=== PATIENT | male | born 1960 | race Caucasian/White ===

== ENCOUNTER 2018-07-16 13:55 | Emergency (ER) | payer MEDICARE, MEDICAID ==
[~2018-07-16] VITALS: Ht 172.7 cm; Wt 77.3 kg
[~2018-07-16 13:55] MED LIST: BUPR-93 PO; MULT-1239 PO; PHEN100C23 PO
[2018-07-16 14:07] VITALS: BP 132/78
== END 2018-07-16 16:34 | disposition left against medical advice (07) ==
LOC: EMS 13:56
DX: L89.159 Pressure ulcer of sacral region, unspecified stage (principal); L08.89 Other specified local infections of the skin and subcutaneous tissue; L97.421 Non-pressure chronic ulcer of left heel and midfoot limited to breakdown of skin; F17.210 Nicotine dependence, cigarettes, uncomplicated; G40.909 Epilepsy, unspecified, not intractable, without status epilepticus; Z59.0 Homelessness; Z79.899 Other long term (current) drug therapy

== ENCOUNTER 2018-08-17 13:22 | Emergency (ER) | payer MEDICARE, MEDICAID ==
[~2018-08-17] VITALS: Ht 170.2 cm; Wt 77.3 kg
[2018-08-17] MEDS ORDERED: DOXY100C PO (14:55)
[2018-08-17 15:15] LABS: BASOPHILS % (AUTO) 0.7 % (0.0-2.0); EOSINOPHILS % (AUTO) 4.6 % (1.0-6.0); HEMATOCRIT 42.6 % (41-53); HEMOGLOBIN 14.6 g/dL (13.5-17.5); LYMPHOCYTES # (AUTO) 2.7 K/uL (1.0-4.8); LYMPHOCYTES % (AUTO) 42.8 % (22.0-44.0); MEAN CORPUSCULAR HEMOGLOBIN 29.7 pg (26.0-34.0); MEAN CORPUSCULAR HGB CONC 34.3 G/dL (31.0-37.0); MEAN CORPUSCULAR VOLUME 86 fL (80-100); MONOCYTES # (AUTO) 0.6 K/uL (0.1-1.0); MONOCYTES % (AUTO) 9.5 % (2.0-9.0); NEUTROPHILS # (AUTO) 2.7 K/uL (1.8-7.7); NEUTROPHILS % (AUTO) 42.4 % (40.0-70.0); PLATELET COUNT (AUTO) 338 K/uL (150-450); RED BLOOD CELL COUNT(AUTO) 4.93 MIL/uL (4.50-5.90); RED CELL DISTRIBUTION WIDTH 14.1 % (11.5-14.5)
[2018-08-17 15:30] LABS: ANION GAP 12 mmol/L (8-16); CALCIUM, TOTAL 9.3 mg/dL (8.8-10.5); CARBON DIOXIDE 24 mmol/L (22-29); CHLORIDE 107 mmol/L (98-107); CREATININE 0.94 mg/dL (0.60-1.30); GLOMERULAR FILTR. RATE CALC > 60 mL/min (>60); GLUCOSE,RANDOM 118 mg/dL (70-110); POTASSIUM 3.9 mmol/L (3.5-5.1); SODIUM SERUM 143 mmol/L (136-145); UREA NITROGEN, BLOOD 16 mg/dL (7-18)
[2018-08-17 15:38] LABS: ALANINE AMINOTRANSFERASE 20 U/L (12-78); ALBUMIN 3.6 g/dL (3.4-5.0); ALKALINE PHOSPHATASE 116 U/L (46-116); ASPARTATE AMINOTRANSFERASE 17 U/L (15-37); BILIRUBIN,TOTAL 0.2 mg/dL (0.1-1.0); TOTAL PROTEIN, SERUM 8.1 g/dL (6.4-8.2)
[2018-08-17 17:22] LABS: AMPHET/METH SCREEN,URINE POSITIVE (NEGATIVE); BARBITURATE SCREEN, URINE NEGATIVE (NEGATIVE); BENZODIAZEPINES SCREEN,URINE NEGATIVE (NEGATIVE); CANNABINOID SCREEN,URINE NEGATIVE (NEGATIVE); COCAINE SCREEN,URINE NEGATIVE (NEGATIVE); METHADONE SCREEN, URINE NEGATIVE (NEGATIVE); OPIATE SCREEN,URINE NEGATIVE (NEGATIVE); PHENCYCLIDINE SCREEN,URINE NEGATIVE (NEGATIVE)
[2018-08-18 00:24] VITALS: BP 118/55
== END 2018-08-18 01:43 | disposition short-term general hospital (02) ==
LOC: EMS 13:22
DX: S81.801A Unspecified open wound, right lower leg, initial encounter (principal); S81.802A Unspecified open wound, left lower leg, initial encounter; F33.9 Major depressive disorder, recurrent, unspecified; F15.10 Other stimulant abuse, uncomplicated; L98.499 Non-pressure chronic ulcer of skin of other sites with unspecified severity; F17.210 Nicotine dependence, cigarettes, uncomplicated; X58.XXXA Exposure to other specified factors, initial encounter; Y93.89 Activity, other specified; Y92.89 Other specified places as the place of occurrence of the external cause; Y99.8 Other external cause status
CPT/HCPCS: 36415; 80053; 80307; 85025; 99285; 99406; G0480

== ENCOUNTER 2018-08-23 15:37 | Emergency (ER) | payer MEDICARE, MEDICAID ==
[~2018-08-23] VITALS: Ht 172.7 cm; Wt 63.6 kg
[~2018-08-23 15:37] MED LIST changes: -BUPR-93 PO; +DOXY100C PO
[2018-08-23] MEDS ORDERED: ACETAMINOPHEN 500 MG TABLET PO ONE (16:15)
[2018-08-23 17:35] VITALS: BP 121/82
== END 2018-08-23 18:15 | disposition home or self-care (01) ==
LOC: EMS 15:37
DX: S91.302A Unspecified open wound, left foot, initial encounter (principal); S91.301A Unspecified open wound, right foot, initial encounter; F17.210 Nicotine dependence, cigarettes, uncomplicated; W22.8XXA Striking against or struck by other objects, initial encounter; Y93.89 Activity, other specified; Y92.89 Other specified places as the place of occurrence of the external cause; Y99.8 Other external cause status
CPT/HCPCS: 99406

== ENCOUNTER 2018-08-24 02:04 | Emergency (ER) | payer MEDICARE, MEDICAID ==
[~2018-08-24] VITALS: Ht 172.7 cm; Wt 68.2 kg
[2018-08-24] MEDS ORDERED: SULFAMETHOX/TRIMETH DS 800-160 MG/TABLET PO ONE (03:45)
[2018-08-24] MEDS ORDERED: MUPIROCIN CALCIUM 2% 22 GM OINTMENT TP ONE (03:45)
[2018-08-24] MEDS ORDERED: CEPHALEXIN MONOHYDRATE 500 MG CAPSULE PO ONE (03:45)
[2018-08-24 04:17] VITALS: BP 126/69
== END 2018-08-24 04:15 | disposition home or self-care (01) ==
LOC: EMS 02:07
DX: S91.301A Unspecified open wound, right foot, initial encounter (principal); S91.302A Unspecified open wound, left foot, initial encounter; X58.XXXA Exposure to other specified factors, initial encounter; Y93.89 Activity, other specified; Y92.89 Other specified places as the place of occurrence of the external cause; Y99.8 Other external cause status

== ENCOUNTER 2018-10-03 15:08 | Emergency (ER) | payer MEDICAID, MEDICARE ==
[~2018-10-03] VITALS: Ht 172.7 cm; Wt 81.8 kg
[2018-10-03 16:15] LABS: BASOPHILS % (AUTO) 1.1 % (0.0-2.0); EOSINOPHILS % (AUTO) 4.1 % (1.0-6.0); HEMATOCRIT 28.6 % (41-53); HEMOGLOBIN 9.7 g/dL (13.5-17.5); LYMPHOCYTES # (AUTO) 2.6 K/uL (1.0-4.8); LYMPHOCYTES % (AUTO) 40.3 % (22.0-44.0); MEAN CORPUSCULAR HEMOGLOBIN 30.1 pg (26.0-34.0); MEAN CORPUSCULAR HGB CONC 34.1 G/dL (31.0-37.0); MEAN CORPUSCULAR VOLUME 88 fL (80-100); MONOCYTES # (AUTO) 0.6 K/uL (0.1-1.0); MONOCYTES % (AUTO) 9.1 % (2.0-9.0); NEUTROPHILS # (AUTO) 2.9 K/uL (1.8-7.7); NEUTROPHILS % (AUTO) 45.4 % (40.0-70.0); PLATELET COUNT (AUTO) 296 K/uL (150-450); RED BLOOD CELL COUNT(AUTO) 3.24 MIL/uL (4.50-5.90); RED CELL DISTRIBUTION WIDTH 15.8 % (11.5-14.5)
[2018-10-03 16:38] LABS: ANION GAP 11 mmol/L (8-16); CALCIUM, TOTAL 8.6 mg/dL (8.8-10.5); CARBON DIOXIDE 24 mmol/L (22-29); CHLORIDE 107 mmol/L (98-107); CREATININE 0.83 mg/dL (0.60-1.30); GLOMERULAR FILTR. RATE CALC > 60 mL/min (>60); GLUCOSE,RANDOM 90 mg/dL (70-110); POTASSIUM 3.5 mmol/L (3.5-5.1); SODIUM SERUM 142 mmol/L (136-145); UREA NITROGEN, BLOOD 13 mg/dL (7-18)
[2018-10-03 16:42] LABS: ALANINE AMINOTRANSFERASE 14 U/L (12-78); ALKALINE PHOSPHATASE 82 U/L (46-116); ASPARTATE AMINOTRANSFERASE 15 U/L (15-37); BILIRUBIN,TOTAL 0.3 mg/dL (0.1-1.0)
[2018-10-03 16:43] LABS: PHENYTOIN (DILANTIN) < 0.5 mcg/mL (10.0-20.0)
[2018-10-03] MEDS ORDERED: PHENYTOIN SODIUM 100 MG ER CAPSULE PO ONE (18:45)
[2018-10-03 18:50] VITALS: BP 119/73
== END 2018-10-03 19:50 | disposition home or self-care (01) ==
LOC: EMS 15:10
DX: G40.909 Epilepsy, unspecified, not intractable, without status epilepticus (principal); F17.210 Nicotine dependence, cigarettes, uncomplicated
CPT/HCPCS: 36415; 80053; 80185; 85025; 99283; G0480

== ENCOUNTER 2018-10-06 17:20 | Emergency (ER) | payer MEDICAID, OTHER ==
[~2018-10-06] VITALS: Ht 172.7 cm; Wt 79.0 kg
[2018-10-06] MEDS ORDERED: LEVE250T55 PO (18:00)
[2018-10-06] MEDS ORDERED: ACETAMINOPHEN 500 MG TABLET PO ONE (21:00)
[2018-10-06 22:00] VITALS: BP 130/88
== END 2018-10-06 22:01 | disposition home or self-care (01) ==
LOC: EMS 17:24
DX: S90.811A Abrasion, right foot, initial encounter (principal); S90.812A Abrasion, left foot, initial encounter; F17.210 Nicotine dependence, cigarettes, uncomplicated; X58.XXXA Exposure to other specified factors, initial encounter; Y93.89 Activity, other specified; Y92.89 Other specified places as the place of occurrence of the external cause; Y99.8 Other external cause status

== ENCOUNTER 2018-10-12 18:35 | Emergency (ER) | payer MEDICARE, OTHER ==
[~2018-10-12] VITALS: Ht 172.7 cm; Wt 63.6 kg
[~2018-10-12 18:35] MED LIST changes: -DOXY100C PO; +LEVE250T55 PO; -MULT-1239 PO; -PHEN100C23 PO
[2018-10-12] MEDS ORDERED: ACETAMINOPHEN 325 MG TABLET PO ONE (19:30)
[2018-10-12 21:06] VITALS: BP 121/84
== END 2018-10-12 21:13 | disposition home or self-care (01) ==
LOC: EMS 18:37
DX: S09.90XA Unspecified injury of head, initial encounter (principal); F17.210 Nicotine dependence, cigarettes, uncomplicated; Z79.899 Other long term (current) drug therapy; Z98.890 Other specified postprocedural states; W22.8XXA Striking against or struck by other objects, initial encounter; Y93.89 Activity, other specified; Y92.89 Other specified places as the place of occurrence of the external cause; Y99.8 Other external cause status
CPT/HCPCS: 70450

== ENCOUNTER 2020-07-01 07:28 | Emergency (ER) | payer MEDICARE, OTHER ==
[~2020-07-01] VITALS: Ht 175.3 cm; Wt 72.7 kg
[2020-07-01] MEDS ORDERED: LevETIRAcetam 1,000 MG in DEXTROSE 5%-WATER 100 ML IV ONE (07:30)
[2020-07-01] MEDS ORDERED: BUSP10TA23 PO (07:48)
[2020-07-01] MEDS ORDERED: TRAZ150 PO (07:48)
[2020-07-01] MEDS ORDERED: LOSA25TA21 PO (07:48)
[2020-07-01] MEDS ORDERED: LEVE500T53 PO (07:48)
[2020-07-01] MEDS ORDERED: DULO-8 PO (07:48)
[2020-07-01] MEDS ORDERED: DIVA-80 PO (07:48)
[2020-07-01] MEDS ORDERED: OLAN5TAB2 PO (07:48)
[2020-07-01] MEDS ORDERED: IBUP-2071 PO (07:48)
[2020-07-01] MEDS ORDERED: MECL-186 PO (07:48)
[2020-07-01] MEDS ORDERED: PHENY100 PO (07:48)
[2020-07-01 07:59] LABS: ANION GAP 21 mmol/L (8-16); CARBON DIOXIDE 18 mmol/L (22-29); CHLORIDE 103 mmol/L (98-107); CREATININE 1.37 mg/dL (0.60-1.30); GLUCOSE,RANDOM 111 mg/dL (70-110); POTASSIUM 3.8 mmol/L (3.5-5.1); SODIUM SERUM 142 mmol/L (136-145); UREA NITROGEN, BLOOD 14 mg/dL (7-18)
[2020-07-01 08:00] LABS: CALCIUM, TOTAL 9.4 mg/dL (8.8-10.5); GLOMERULAR FILTR. RATE CALC 53 mL/min (>60)
[2020-07-01] MEDS ORDERED: IOVERSOL 350 MG/ML 100 ML VIAL ONE (08:00)
[2020-07-01] MEDS ORDERED: SODIUM CHLORIDE 0.9% 100 ML ONE (08:00)
[2020-07-01 08:05] LABS: PROTHROMBIN TIME 10.9 SEC (9.4-11.6)
[2020-07-01 08:24] LABS: ALANINE AMINOTRANSFERASE 54 U/L (12-78); ALBUMIN 3.8 g/dL (3.4-5.0); ALKALINE PHOSPHATASE 116 U/L (46-116); ASPARTATE AMINOTRANSFERASE 16 U/L (15-37); BILIRUBIN,TOTAL 0.3 mg/dL (0.1-1.0); CREATINE KINASE, TOTAL ONLY 166 U/L (39-308); TOTAL PROTEIN, SERUM 8.3 g/dL (6.4-8.2); TROPONIN I < 0.02 ng/mL (0.00-0.05)
[2020-07-01 08:25] LABS: B-TYPE NATRIURETIC PEPTIDE 18 pg/mL (0-100)
[2020-07-01 08:31] LABS: EOSINOPHILS % (AUTO) 1.9 % (1.0-6.0); HEMATOCRIT 31.5 % (41-53); HEMOGLOBIN 10.7 g/dL (13.5-17.5); LYMPHOCYTES # (AUTO) 1.5 K/uL (1.0-4.8); LYMPHOCYTES % (AUTO) 20.1 % (22.0-44.0); MEAN CORPUSCULAR HEMOGLOBIN 32.2 pg (26.0-34.0); MEAN CORPUSCULAR VOLUME 95 fL (80-100); MONOCYTES # (AUTO) 0.5 K/uL (0.1-1.0); MONOCYTES % (AUTO) 6.5 % (2.0-9.0); NEUTROPHILS # (AUTO) 5.2 K/uL (1.8-7.7); NEUTROPHILS % (AUTO) 70.5 % (40.0-70.0); PLATELET COUNT (AUTO) 223 K/uL (150-450); RED BLOOD CELL COUNT(AUTO) 3.34 MIL/uL (4.50-5.90); RED CELL DISTRIBUTION WIDTH 13.3 % (11.5-14.5)
[2020-07-01 08:39] LABS: LACTIC ACID 14.9 mmol/L (0.4-2.0)
[2020-07-01 08:42] LABS: AMMONIA 82 umol/L (11-32); PHENYTOIN (DILANTIN) 0.9 mcg/mL (10.0-20.0)
[2020-07-01] MEDS ORDERED: SODIUM CHLORIDE 0.9% 2,000 ML IV ONE (08:45)
[2020-07-01 08:53] LABS: COVID AG,FIA SOURCE NASOPHARYNGEAL
[2020-07-01] MEDS ORDERED: ACETAMINOPHEN 325 MG TABLET PO PRN (10:45)
[2020-07-01] MEDS ORDERED: ONDANSETRON HCL 4 MG/2 ML VIAL IVP PRN (10:45)
[2020-07-01] MEDS ORDERED: 0.9% SODIUM CHLORIDE 10 ML SYRINGE IVP PRN (10:45)
[2020-07-01 13:07] VITALS: BP 127/70
[2020-07-01] MEDS ORDERED: DULO20CA27 PO (14:36)
== END 2020-07-01 14:41 | disposition home or self-care (01) ==
LOC: EMS 07:41
DX: G40.909 Epilepsy, unspecified, not intractable, without status epilepticus (principal); F17.210 Nicotine dependence, cigarettes, uncomplicated; Z20.822 Contact with and (suspected) exposure to COVID-19; Z86.73 Personal history of transient ischemic attack (TIA), and cerebral infarction without residual deficits
CPT/HCPCS: 36415; 70450; 70496; 71045; 80053; 80185; 82140; 82550; 82962; 83605; 83880; 84484; 85025; 85610; 85730; 86850; 86900; 86901; 87426; 93005; 96361; 96365; 99285; G0480; J0712; J7030; J7050; J7060; Q9967; G0482

== ENCOUNTER 2020-07-16 16:13 | Emergency (ER) | payer MEDICARE, OTHER ==
[~2020-07-16] VITALS: Ht 172.7 cm; Wt 77.0 kg
[~2020-07-16 16:13] MED LIST changes: +BUSP10TA23 PO; +DIVA-80 PO; +DULO20CA27 PO; +IBUP-2071 PO; -LEVE250T55 PO; +LEVE500T53 PO; +LOSA25TA21 PO; +MECL-186 PO; +OLAN5TAB2 PO; +PHENY100 PO; +TRAZ150 PO
[2020-07-16 18:26] VITALS: BP 115/58
== END 2020-07-16 19:13 | disposition home or self-care (01) ==
LOC: EMS 16:13
DX: Z76.0 Encounter for issue of repeat prescription (principal); F17.210 Nicotine dependence, cigarettes, uncomplicated; Z86.73 Personal history of transient ischemic attack (TIA), and cerebral infarction without residual deficits
CPT/HCPCS: 99283; Z7502

== ENCOUNTER 2020-07-18 16:28 | Emergency (ER) | payer MEDICARE, OTHER ==
[~2020-07-18] VITALS: Ht 167.6 cm; Wt 72.7 kg
[2020-07-18 18:00] LABS: COVID AG,FIA SOURCE NASOPHARYNGEAL
[2020-07-18] MEDS ORDERED: LevETIRAcetam 500 MG TABLET PO ONE (18:00)
[2020-07-18 18:07] LABS: BASOPHILS % (AUTO) 0.9 % (0.0-2.0); EOSINOPHILS % (AUTO) 2.6 % (1.0-6.0); HEMATOCRIT 37.3 % (41-53); HEMOGLOBIN 12.4 g/dL (13.5-17.5); LYMPHOCYTES # (AUTO) 3.4 K/uL (1.0-4.8); LYMPHOCYTES % (AUTO) 39.3 % (22.0-44.0); MEAN CORPUSCULAR HEMOGLOBIN 31.8 pg (26.0-34.0); MEAN CORPUSCULAR HGB CONC 33.3 G/dL (31.0-37.0); MEAN CORPUSCULAR VOLUME 95 fL (80-100); MONOCYTES # (AUTO) 0.7 K/uL (0.1-1.0); MONOCYTES % (AUTO) 8.1 % (2.0-9.0); NEUTROPHILS # (AUTO) 4.3 K/uL (1.8-7.7); NEUTROPHILS % (AUTO) 49.1 % (40.0-70.0); PLATELET COUNT (AUTO) 336 K/uL (150-450); RED BLOOD CELL COUNT(AUTO) 3.91 MIL/uL (4.50-5.90); RED CELL DISTRIBUTION WIDTH 13.4 % (11.5-14.5)
[2020-07-18 18:18] LABS: ANION GAP 8 mmol/L (8-16); CALCIUM, TOTAL 8.4 mg/dL (8.8-10.5); CARBON DIOXIDE 28 mmol/L (22-29); CHLORIDE 107 mmol/L (98-107); CREATININE 0.81 mg/dL (0.60-1.30); GLOMERULAR FILTR. RATE CALC > 60 mL/min (>60); GLUCOSE,RANDOM 77 mg/dL (70-110); POTASSIUM 3.9 mmol/L (3.5-5.1); SODIUM SERUM 143 mmol/L (136-145); UREA NITROGEN, BLOOD 14 mg/dL (7-18)
[2020-07-18 18:24] LABS: ALANINE AMINOTRANSFERASE 30 U/L (12-78); ALBUMIN 3.3 g/dL (3.4-5.0); ALKALINE PHOSPHATASE 103 U/L (46-116); ASPARTATE AMINOTRANSFERASE 13 U/L (15-37); BILIRUBIN,TOTAL 0.1 mg/dL (0.1-1.0); TOTAL PROTEIN, SERUM 7.2 g/dL (6.4-8.2)
[2020-07-18 18:30] LABS: B-TYPE NATRIURETIC PEPTIDE 16 pg/mL (0-100)
[2020-07-18 18:35] LABS: INFLUENZA TYPE A NEGATIVE FOR TYPE A (NEGATIVE); INFLUENZA TYPE B NEGATIVE FOR TYPE B (NEGATIVE)
[2020-07-18 18:52] VITALS: BP 126/69
== END 2020-07-18 20:33 | disposition home or self-care (01) ==
LOC: EMS 16:31
DX: G40.909 Epilepsy, unspecified, not intractable, without status epilepticus (principal); Z20.822 Contact with and (suspected) exposure to COVID-19
CPT/HCPCS: 36415; 71045; 80053; 80185; 83880; 84484; 85025; 87426; 87804; 93005; 99285; U0003

== ENCOUNTER 2020-07-22 17:07 | Emergency (ER) | payer MEDICARE, OTHER ==
[~2020-07-22] VITALS: Ht 172.7 cm; Wt 76.4 kg
[2020-07-22 20:28] VITALS: BP 112/67
== END 2020-07-22 20:42 | disposition home or self-care (01) ==
LOC: EMS 17:07
DX: R07.89 Other chest pain (principal); F20.9 Schizophrenia, unspecified; F41.9 Anxiety disorder, unspecified; F32.9 Major depressive disorder, single episode, unspecified; F17.210 Nicotine dependence, cigarettes, uncomplicated
CPT/HCPCS: 93005; 99283

== ENCOUNTER 2020-12-26 07:50 | Emergency (ER) | payer MEDICARE, OTHER ==
[~2020-12-26] VITALS: Ht 175.3 cm; Wt 69.2 kg
[~2020-12-26 07:50] MED LIST changes: -OLAN5TAB2 PO; +OLAN5TAB52 PO; -TRAZ150 PO; +[UNRECOGNIZED DRUG - CODE] PO
[2020-12-26] MEDS ORDERED: ACETAMINOPHEN 650 MG RECTAL SUPPOSITORY PR ONE (08:15)
[2020-12-26] MEDS ORDERED: SODIUM CHLORIDE 0.9% 1,000 ML IV ONE (08:15)
[2020-12-26 08:47] LABS: GLUCOSE,POINT OF CARE 115 MG/DL (70-110)
[2020-12-26 08:54] LABS: BASOPHILS % (AUTO) 0.9 % (0.0-2.0); EOSINOPHILS % (AUTO) 0.3 % (1.0-6.0); HEMATOCRIT 39.2 % (41-53); HEMOGLOBIN 13.4 g/dL (13.5-17.5); LYMPHOCYTES # (AUTO) 0.8 K/uL (1.0-4.8); LYMPHOCYTES % (AUTO) 10.9 % (22.0-44.0); MEAN CORPUSCULAR HEMOGLOBIN 31.8 pg (26.0-34.0); MEAN CORPUSCULAR HGB CONC 34.2 G/dL (31.0-37.0); MEAN CORPUSCULAR VOLUME 93 fL (80-100); MONOCYTES # (AUTO) 0.4 K/uL (0.1-1.0); MONOCYTES % (AUTO) 4.6 % (2.0-9.0); NEUTROPHILS # (AUTO) 6.3 K/uL (1.8-7.7); NEUTROPHILS % (AUTO) 83.3 % (40.0-70.0); PLATELET COUNT (AUTO) 270 K/uL (150-450); RED BLOOD CELL COUNT(AUTO) 4.22 MIL/uL (4.50-5.90); RED CELL DISTRIBUTION WIDTH 13.2 % (11.5-14.5)
[2020-12-26 08:58] LABS: COVID AG,FIA SOURCE NASOPHARYNGEAL
[2020-12-26 09:05] LABS: PROTHROMBIN TIME 10.5 SEC (9.4-11.6)
[2020-12-26 09:12] LABS: B-TYPE NATRIURETIC PEPTIDE 10 pg/mL (0-100)
[2020-12-26 09:16] LABS: SALICYLATE 3.6 mg/dL (2.8-20.0)
[2020-12-26 09:20] LABS: AMMONIA 46 umol/L (11-32); TROPONIN I < 0.02 ng/mL (0.00-0.05)
[2020-12-26 09:21] LABS: ALANINE AMINOTRANSFERASE 23 U/L (12-78); ALBUMIN 3.4 g/dL (3.4-5.0); ALKALINE PHOSPHATASE 90 U/L (46-116); ASPARTATE AMINOTRANSFERASE 14 U/L (15-37); BILIRUBIN,TOTAL 0.2 mg/dL (0.1-1.0); CARBON DIOXIDE 23 mmol/L (22-29); CREATININE 1.32 mg/dL (0.60-1.30); GLOMERULAR FILTR. RATE CALC 55 mL/min (>60); GLUCOSE,RANDOM 129 mg/dL (70-110); LIPASE 125 U/L (73-393); PHENYTOIN (DILANTIN) 4.3 mcg/mL (10.0-20.0); TOTAL PROTEIN, SERUM 7.6 g/dL (6.4-8.2); UREA NITROGEN, BLOOD 13 mg/dL (7-18)
[2020-12-26 09:22] LABS: APPEARANCE,URINE CLEAR (CLEAR); GLUCOSE, URINE (UA) NEGATIVE (NEGATIVE); KETONES,URINE NEGATIVE (NEGATIVE); LEUKOCYTE ESTERASE ,URINE NEGATIVE (NEGATIVE); NITRATE,URINE NEGATIVE (NEGATIVE); OCCULT BLOOD,URINE SMALL (NEGATIVE); PROTEIN,URINE TRACE (NEGATIVE)
[2020-12-26 09:24] LABS: BILIRUBIN,URINE PRELIM. POSITIVE (NEGATIVE)
[2020-12-26 09:27] LABS: ANION GAP 9 mmol/L (8-16); CHLORIDE 102 mmol/L (98-107); POTASSIUM 3.1 mmol/L (3.5-5.1); SODIUM SERUM 134 mmol/L (136-145)
[2020-12-26 09:28] LABS: ACETAMINOPHEN < 2 mcg/mL (10-30)
[2020-12-26 09:30] LABS: AMPHET/METH SCREEN,URINE POSITIVE (NEGATIVE); BARBITURATE SCREEN, URINE NEGATIVE (NEGATIVE); BENZODIAZEPINES SCREEN,URINE POSITIVE (NEGATIVE); CANNABINOID SCREEN,URINE NEGATIVE (NEGATIVE); COCAINE SCREEN,URINE NEGATIVE (NEGATIVE); METHADONE SCREEN, URINE NEGATIVE (NEGATIVE); OPIATE SCREEN,URINE NEGATIVE (NEGATIVE)
[2020-12-26 09:30] LABS: LACTIC ACID 4.7 mmol/L (0.4-2.0)
[2020-12-26 09:31] LABS: PHENCYCLIDINE SCREEN,URINE NEGATIVE (NEGATIVE)
[2020-12-26 09:33] LABS: BACTERIA,URINE None Seen /HPF (None Seen); SQUAMOUS EPITHELIAL CELL,UR Few /LPF (None Seen); WBC,URINE None Seen /HPF (0-5)
[2020-12-26] MEDS ORDERED: 0.9% SODIUM CHLORIDE 10 ML SYRINGE IVP PRN (09:45)
[2020-12-26] MEDS ORDERED: LACTULOSE 200 GM/300 ML RECTAL SOLUTION PR ONE (09:45)
[2020-12-26] MEDS ORDERED: SODIUM CHLORIDE 0.9% 2,100 ML IV ONE (09:45)
[2020-12-26] MEDS ORDERED: POTASSIUM CHLORIDE 20 MEQ ER TABLET PO ONE (09:45)
[2020-12-26] MEDS ORDERED: FOSPHENYTOIN SODIUM 750 MGPE in SODIUM CHLORIDE 0.9% 100 ML IV ONE (10:00)
[2020-12-26] MEDS ORDERED: VANCOMYCIN HCL 1 GM/D5% WATER 200 ML IV ONE (10:00)
[2020-12-26] MEDS ORDERED: PIPERACILLIN/TAZO 3.375 GM/D5W 50 ML IV ONE (10:15)
[2020-12-26 10:28] LABS: LACTATE DEHYDROGENASE 178 U/L (85-227)
[2020-12-26] MEDS ORDERED: PHENYTOIN SODIUM 500 MG in SODIUM CHLORIDE 0.9% 100 ML IV ONE (10:30)
[2020-12-26 10:36] LABS: LACTIC ACID 2.3 mmol/L (0.4-2.0)
[2020-12-26 13:51] VITALS: BP 103/62
== END 2020-12-26 16:00 | disposition home or self-care (01) ==
LOC: EMS 07:54
DX: G40.909 Epilepsy, unspecified, not intractable, without status epilepticus (principal); R41.82 Altered mental status, unspecified; K72.90 Hepatic failure, unspecified without coma; F15.90 Other stimulant use, unspecified, uncomplicated; F41.9 Anxiety disorder, unspecified; F32.9 Major depressive disorder, single episode, unspecified; F20.9 Schizophrenia, unspecified; F17.210 Nicotine dependence, cigarettes, uncomplicated; Z20.822 Contact with and (suspected) exposure to COVID-19
CPT/HCPCS: 36415; 70450; 71045; 80053; 80185; 80307; 81001; 82140; 82962; 83605; 83615; 83690; 83735; 83880; 84145; 84484; 85025; 85610; 87040; 87426; 93005; 96361; 96365; 96367; 99285; G0480; J1165; J2543; J3370; J7030; J7050; U0003; 82948; G0481; Q2009

== ENCOUNTER 2021-10-04 21:34 | Emergency (ER) | payer MEDICARE, OTHER ==
[~2021-10-04] VITALS: Ht 182.9 cm; Wt 81.8 kg
[~2021-10-04 21:34] MED LIST changes: -DULO20CA27 PO; +DULO20CA71 PO; +LEVE500T20 PO; -LEVE500T53 PO; +LOSA-381 PO; -LOSA25TA21 PO; +TRAZ150T80 PO; -[UNRECOGNIZED DRUG - CODE] PO
[2021-10-04 22:12] LABS: GLUCOMETER DEV NAME(LOC) ERT.5; GLUCOSE,POINT OF CARE 149 MG/DL (70-110)
[2021-10-04] MEDS ORDERED: LevETIRAcetam 1,000 MG in DEXTROSE 5%-WATER 100 ML IV ONE (22:30)
[2021-10-04 22:48] LABS: BASOPHILS % (AUTO) 0.7 % (0.0-2.0); EOSINOPHILS % (AUTO) 0.9 % (1.0-6.0); HEMATOCRIT 40.8 % (41-53); HEMOGLOBIN 13.9 g/dL (13.5-17.5); LYMPHOCYTES # (AUTO) 1.4 K/uL (1.0-4.8); LYMPHOCYTES % (AUTO) 12.7 % (22.0-44.0); MEAN CORPUSCULAR HEMOGLOBIN 31.4 pg (26.0-34.0); MEAN CORPUSCULAR HGB CONC 34.2 G/dL (31.0-37.0); MEAN CORPUSCULAR VOLUME 92 fL (80-100); MONOCYTES # (AUTO) 0.5 K/uL (0.1-1.0); MONOCYTES % (AUTO) 4.5 % (2.0-9.0); NEUTROPHILS # (AUTO) 8.7 K/uL (1.8-7.7); NEUTROPHILS % (AUTO) 81.2 % (40.0-70.0); PLATELET COUNT (AUTO) 291 K/uL (150-450); RED BLOOD CELL COUNT(AUTO) 4.43 MIL/uL (4.50-5.90); RED CELL DISTRIBUTION WIDTH 12.8 % (11.5-14.5)
[2021-10-04 22:55] LABS: ANION GAP 12 mmol/L (8-16); CALCIUM, TOTAL 9.1 mg/dL (8.8-10.5); CARBON DIOXIDE 25 mmol/L (22-29); CHLORIDE 106 mmol/L (98-107); CREATININE 0.97 mg/dL (0.60-1.30); GLOMERULAR FILTR. RATE CALC > 60 mL/min (>60); GLUCOSE,RANDOM 130 mg/dL (70-110); POTASSIUM 3.4 mmol/L (3.5-5.1); SODIUM SERUM 143 mmol/L (136-145); UREA NITROGEN, BLOOD 21 mg/dL (7-18)
[2021-10-04 23:00] LABS: PHENYTOIN (DILANTIN) 2.8 mcg/mL (10.0-20.0); VALPROIC ACID 5 mcg/mL (50-100)
[2021-10-04] MEDS ORDERED: PHENYTOIN SODIUM 1,000 MG in SODIUM CHLORIDE 0.9% 150 ML IV ONE (23:45)
[2021-10-04] MEDS ORDERED: DIVALPROEX SODIUM 250 MG DR TABLET PO ONE (23:45)
[2021-10-05 01:21] VITALS: BP 126/68
== END 2021-10-05 02:08 | disposition home or self-care (01) ==
LOC: EMS 21:45
DX: G40.909 Epilepsy, unspecified, not intractable, without status epilepticus (principal); F41.9 Anxiety disorder, unspecified; F32.A Depression, unspecified; F20.9 Schizophrenia, unspecified; F17.210 Nicotine dependence, cigarettes, uncomplicated; Z86.69 Personal history of other diseases of the nervous system and sense organs; Z86.59 Personal history of other mental and behavioral disorders
CPT/HCPCS: 36415; 80048; 80164; 80185; 82962; 85025; 96365; 96367; 99284; J0712; J1165; J7050; J7060

== ENCOUNTER 2022-01-27 19:59 | Emergency (ER) | payer MEDICARE, OTHER ==
[~2022-01-27] VITALS: Ht 172.7 cm; Wt 76.4 kg
[2022-01-27 20:34] VITALS: BP 118/78
[2022-01-27] MEDS ORDERED: HydrOXYzine PAMOATE 50 MG CAPSULE PO ONE (20:45)
[2022-01-27 20:50] LABS: BASOPHILS % (AUTO) 1.2 % (0.0-2.0); EOSINOPHILS % (AUTO) 4.4 % (1.0-6.0); HEMATOCRIT 37.8 % (41-53); HEMOGLOBIN 12.8 g/dL (13.5-17.5); LYMPHOCYTES # (AUTO) 3.5 K/uL (1.0-4.8); LYMPHOCYTES % (AUTO) 43.3 % (22.0-44.0); MEAN CORPUSCULAR HEMOGLOBIN 32.3 pg (26.0-34.0); MEAN CORPUSCULAR HGB CONC 33.8 G/dL (31.0-37.0); MEAN CORPUSCULAR VOLUME 96 fL (80-100); MONOCYTES # (AUTO) 0.8 K/uL (0.1-1.0); MONOCYTES % (AUTO) 9.7 % (2.0-9.0); NEUTROPHILS # (AUTO) 3.3 K/uL (1.8-7.7); NEUTROPHILS % (AUTO) 41.4 % (40.0-70.0); PLATELET COUNT (AUTO) 262 K/uL (150-450); RED BLOOD CELL COUNT(AUTO) 3.96 MIL/uL (4.50-5.90); RED CELL DISTRIBUTION WIDTH 13.1 % (11.5-14.5)
[2022-01-27 21:01] LABS: ANION GAP 6 mmol/L (8-16); CALCIUM, TOTAL 8.6 mg/dL (8.8-10.5); CARBON DIOXIDE 27 mmol/L (22-29); CHLORIDE 106 mmol/L (98-107); CREATININE 0.96 mg/dL (0.60-1.30); GLOMERULAR FILTR. RATE CALC > 60 mL/min (>60); GLUCOSE,RANDOM 99 mg/dL (70-110); POTASSIUM 3.9 mmol/L (3.5-5.1); SODIUM SERUM 139 mmol/L (136-145); UREA NITROGEN, BLOOD 20 mg/dL (7-18)
[2022-01-27] MEDS ORDERED: TRAZ150T80 PO (21:17)
== END 2022-01-27 21:34 | disposition home or self-care (01) ==
LOC: EMS 20:02
DX: R07.9 Chest pain, unspecified (principal); F41.9 Anxiety disorder, unspecified; F32.9 Major depressive disorder, single episode, unspecified; F20.9 Schizophrenia, unspecified; R56.9 Unspecified convulsions; F17.210 Nicotine dependence, cigarettes, uncomplicated; Z98.890 Other specified postprocedural states
CPT/HCPCS: 71045; 80048; 84484; 85025; 93005; 99285; 36415-L1; 36415-TC

== ENCOUNTER 2024-07-27 18:27 | Emergency (ER) | payer MEDICARE, MEDICAID ==
[~2024-07-27] VITALS: Ht 167.6 cm; Wt 76.2 kg
[~2024-07-27 18:27] MED LIST changes: +DIVA-153 PO; -DIVA-80 PO; +DULO20CA70 PO; -DULO20CA71 PO; +IBUP-1493 PO; -IBUP-2071 PO; +LEVE-71 PO; -LEVE500T20 PO; -MECL-186 PO; +MECL-244 PO; +PHEN100C74 PO; -PHENY100 PO
[2024-07-27 18:48] VITALS: BP 145/64; PULSE 64; RESP 18; TEMP 99; O2SAT 98
[2024-07-27 19:07] LABS: BASOPHILS % (AUTO) 1.3 % (0.0-2.0); EOSINOPHILS % (AUTO) 3.1 % (1.0-6.0); HEMATOCRIT 40.5 % (41-53); HEMOGLOBIN 13.7 g/dL (13.5-17.5); LYMPHOCYTES # (AUTO) 3.3 K/uL (1.0-4.8); LYMPHOCYTES % (AUTO) 38.6 % (22.0-44.0); MEAN CORPUSCULAR HEMOGLOBIN 31.2 pg (26.0-34.0); MEAN CORPUSCULAR HGB CONC 33.8 G/dL (31.0-37.0); MEAN CORPUSCULAR VOLUME 93 fL (80-100); MONOCYTES # (AUTO) 0.5 K/uL (0.1-1.0); MONOCYTES % (AUTO) 6.3 % (2.0-9.0); NEUTROPHILS # (AUTO) 4.3 K/uL (1.8-7.7); NEUTROPHILS % (AUTO) 50.7 % (40.0-70.0); PLATELET COUNT (AUTO) 262 K/uL (150-450); RED BLOOD CELL COUNT(AUTO) 4.38 MIL/uL (4.50-5.90); RED CELL DISTRIBUTION WIDTH 13.3 % (11.5-14.5); WHITE BLOOD COUNT (AUTO) 8.5 K/uL (4.5-11.0)
[2024-07-27] MEDS: LORazepam 2 MG TABLET PO ONE (19:11)
[2024-07-27 19:16] LABS: ANION GAP 10 mmol/L (8-16); CALCIUM, TOTAL 8.8 mg/dL (8.8-10.5); CARBON DIOXIDE 27 mmol/L (22-29); CHLORIDE 106 mmol/L (98-107); CREATININE 0.87 mg/dL (0.60-1.30); GLOMERULAR FILTR. RATE CALC > 60 mL/min (>60); GLUCOSE,RANDOM 105 mg/dL (70-110); POTASSIUM 3.8 mmol/L (3.5-5.1); SODIUM SERUM 143 mmol/L (136-145); UREA NITROGEN, BLOOD 21 mg/dL (7-18)
[2024-07-27 19:25] LABS: TROPONIN I-HIGH SENSITIVITY 4 ng/L (<76)
== END 2024-07-27 20:43 | disposition home or self-care (01) ==
LOC: EMS 18:28
DX: L02.212 Cutaneous abscess of back [any part, except buttock and flank] (principal); R07.89 Other chest pain; F41.9 Anxiety disorder, unspecified; F32.A Depression, unspecified; F17.210 Nicotine dependence, cigarettes, uncomplicated; F20.9 Schizophrenia, unspecified; Z79.899 Other long term (current) drug therapy
CPT/HCPCS: 80048; 84484; 85025; 93005; 99284

== ENCOUNTER 2024-10-06 19:49 | Emergency (ER) | payer MEDICARE, MEDICAID ==
[~2024-10-06] VITALS: Ht 172.7 cm; Wt 76.4 kg
[~2024-10-06 19:49] MED LIST changes: +DULO20CA57 PO; -DULO20CA70 PO
[2024-10-06 19:50] VITALS: TEMP 98.4
[2024-10-06 22:20] VITALS: BP 136/61; PULSE 50; RESP 18; O2SAT 96
[2024-10-06] MEDS: IBUPROFEN 400 MG TABLET PO ONE (22:50)
[2024-10-06] MEDS: ACETAMINOPHEN 500 MG TABLET PO ONE (22:50)
== END 2024-10-06 23:58 | disposition home or self-care (01) ==
LOC: EMS 19:55
DX: M54.6 Pain in thoracic spine (principal); M54.2 Cervicalgia; F41.9 Anxiety disorder, unspecified; M40.204 Unspecified kyphosis, thoracic region; M47.812 Spondylosis without myelopathy or radiculopathy, cervical region; F32.A Depression, unspecified; F20.9 Schizophrenia, unspecified; F17.210 Nicotine dependence, cigarettes, uncomplicated; Z79.899 Other long term (current) drug therapy
CPT/HCPCS: 72040; 72070; 99284; Z7502; Z7610

== ENCOUNTER 2024-10-11 17:39 | Emergency (ER) | payer MEDICARE, MEDICAID ==
[~2024-10-11] VITALS: Ht 172.7 cm; Wt 75.0 kg
[~2024-10-11 17:39] MED LIST changes: +DULO20CA19 PO; -DULO20CA57 PO
[2024-10-11 17:41] VITALS: TEMP 97.8
[2024-10-11 17:52] VITALS: BP 113/71; PULSE 61; RESP 18; O2SAT 97
[2024-10-11] MEDS ORDERED: MELA1TAB28 PO (18:07)
[2024-10-11] MEDS: MELATONIN 3 MG TABLET PO ONE (18:22)
[2024-10-11] MEDS: DiphenhydrAMINE HCL 25 MG CAPSULE PO ONE (18:22)
== END 2024-10-11 19:10 | disposition home or self-care (01) ==
LOC: EMS 17:39
DX: G47.00 Insomnia, unspecified (principal); F20.9 Schizophrenia, unspecified; F32.A Depression, unspecified; F41.9 Anxiety disorder, unspecified; F17.210 Nicotine dependence, cigarettes, uncomplicated; Z76.0 Encounter for issue of repeat prescription; Z86.73 Personal history of transient ischemic attack (TIA), and cerebral infarction without residual deficits; Z79.899 Other long term (current) drug therapy
CPT/HCPCS: 99283

== ENCOUNTER 2024-10-18 17:34 | Emergency (ER) | payer MEDICARE, MEDICAID ==
[~2024-10-18] VITALS: Ht 172.7 cm; Wt 74.1 kg
[~2024-10-18 17:34] MED LIST changes: +MELA1TAB28 PO
[2024-10-18 18:00] VITALS: TEMP 97.7
[2024-10-18 18:49] LABS: EOSINOPHILS % (AUTO) 3.2 % (1.0-6.0); HEMATOCRIT 37.6 % (41-53); HEMOGLOBIN 12.8 g/dL (13.5-17.5); LYMPHOCYTES # (AUTO) 3.5 K/uL (1.0-4.8); LYMPHOCYTES % (AUTO) 44.9 % (22.0-44.0); MEAN CORPUSCULAR HEMOGLOBIN 31.6 pg (26.0-34.0); MEAN CORPUSCULAR HGB CONC 34.2 G/dL (31.0-37.0); MEAN CORPUSCULAR VOLUME 93 fL (80-100); MONOCYTES # (AUTO) 0.7 K/uL (0.1-1.0); NEUTROPHILS # (AUTO) 3.1 K/uL (1.8-7.7); NEUTROPHILS % (AUTO) 39.9 % (40.0-70.0); PLATELET COUNT (AUTO) 221 K/uL (150-450); RED BLOOD CELL COUNT(AUTO) 4.06 MIL/uL (4.50-5.90); RED CELL DISTRIBUTION WIDTH 12.9 % (11.5-14.5); WHITE BLOOD COUNT (AUTO) 7.7 K/uL (4.5-11.0)
[2024-10-18 19:00] LABS: ANION GAP 4 mmol/L (8-16); CARBON DIOXIDE 29 mmol/L (22-29); CHLORIDE 105 mmol/L (98-107); CREATININE 0.88 mg/dL (0.60-1.30); GLOMERULAR FILTR. RATE CALC > 60 mL/min (>60); GLUCOSE,RANDOM 89 mg/dL (70-110); SODIUM SERUM 138 mmol/L (136-145); UREA NITROGEN, BLOOD 12 mg/dL (7-18)
[2024-10-18 19:06] LABS: CREATINE KINASE, TOTAL ONLY 75 U/L (39-308)
[2024-10-18 19:10] LABS: TROPONIN I-HIGH SENSITIVITY 6 ng/L (<76)
[2024-10-18 19:21] LABS: B-TYPE NATRIURETIC PEPTIDE 38 pg/mL (0-100)
[2024-10-18 19:36] VITALS: BP 114/63; PULSE 52; RESP 18; O2SAT 96
== END 2024-10-18 21:15 | disposition left against medical advice (07) ==
LOC: EMS 17:34
DX: R07.89 Other chest pain (principal); F41.9 Anxiety disorder, unspecified; F20.9 Schizophrenia, unspecified; F32.A Depression, unspecified; F17.210 Nicotine dependence, cigarettes, uncomplicated; Z86.73 Personal history of transient ischemic attack (TIA), and cerebral infarction without residual deficits; Z79.899 Other long term (current) drug therapy
CPT/HCPCS: 71045; 80048; 82550; 83880; 84484; 85025; 93005; 99285; 36415-L1; 36415-TC

== ENCOUNTER → 2024-10-27 | Emergency (ER) | payer MEDICARE, MEDICAID ==
[~2024-10-27] VITALS: Ht 172.7 cm; Wt 76.4 kg
[~2024-10-27] MED LIST changes: -DULO20CA19 PO; +DULO20CA57 PO
[2024-10-27 18:12] LABS: PLATELET COUNT (AUTO) 262 K/uL (150-450); RED BLOOD CELL COUNT(AUTO) 4.09 MIL/uL (4.50-5.90); RED CELL DISTRIBUTION WIDTH 12.7 % (11.5-14.5); WHITE BLOOD COUNT (AUTO) 7.0 K/uL (4.5-11.0)
[2024-10-27 18:16] LABS: CALCIUM, TOTAL 8.6 mg/dL (8.8-10.5); CREATININE 0.86 mg/dL (0.60-1.30); GLOMERULAR FILTR. RATE CALC > 60 mL/min (>60); GLUCOSE,RANDOM 112 mg/dL (70-110); SODIUM SERUM 147 mmol/L (136-145); UREA NITROGEN, BLOOD 16 mg/dL (7-18)
[2024-10-27 18:28] LABS: TROPONIN I-HIGH SENSITIVITY 5 ng/L (<76)
[2024-10-27 19:22] VITALS: TEMP 98.1
[2024-10-27 20:20] VITALS: BP 123/77; PULSE 72; RESP 18; O2SAT 96
== END | disposition still patient (30) ==
LOC: EMS 17:26 → CANBEDREQ 20:08
DX: R07.2 Precordial pain (principal); F32.A Depression, unspecified; F20.9 Schizophrenia, unspecified; F41.9 Anxiety disorder, unspecified; I10 Essential (primary) hypertension; I69.354 Hemiplegia and hemiparesis following cerebral infarction affecting left non-dominant side; F17.210 Nicotine dependence, cigarettes, uncomplicated; Z79.899 Other long term (current) drug therapy
CPT/HCPCS: 71045; 80048; 84484; 85025; 93005; 99285; 36415-L1; 36415-TC

== ENCOUNTER 2024-10-31 14:16 | Emergency (ER) | payer MEDICARE, MEDICAID ==
[~2024-10-31] VITALS: Ht 172.7 cm; Wt 76.0 kg
[2024-10-31 14:53] VITALS: TEMP 97.3
[2024-10-31 16:12] LABS: PLATELET COUNT (AUTO) 246 K/uL (150-450); RED BLOOD CELL COUNT(AUTO) 3.95 MIL/uL (4.50-5.90); RED CELL DISTRIBUTION WIDTH 12.9 % (11.5-14.5); WHITE BLOOD COUNT (AUTO) 7.0 K/uL (4.5-11.0)
[2024-10-31 16:18] LABS: CALCIUM, TOTAL 8.5 mg/dL (8.8-10.5); CREATININE 0.78 mg/dL (0.60-1.30); GLOMERULAR FILTR. RATE CALC > 60 mL/min (>60); GLUCOSE,RANDOM 91 mg/dL (70-110); SODIUM SERUM 141 mmol/L (136-145); UREA NITROGEN, BLOOD 14 mg/dL (7-18)
[2024-10-31 16:28] LABS: TROPONIN I-HIGH SENSITIVITY 6 ng/L (<76)
[2024-10-31 17:10] LABS: APPEARANCE,URINE CLEAR (CLEAR); GLUCOSE, URINE (UA) NEGATIVE (NEGATIVE); LEUKOCYTE ESTERASE ,URINE NEGATIVE (NEGATIVE); NITRATE,URINE NEGATIVE (NEGATIVE); OCCULT BLOOD,URINE TRACE (NEGATIVE); PH,URINE DRUG SCREEN 6.0 (5.0-8.0); SPECIFIC GRAVITIY, URINE 1.017 (1.003-1.030)
[2024-10-31 17:14] LABS: ALCOHOL, URINE DRUG SCREEN NEGATIVE (NEGATIVE); AMPHET/METH SCREEN,URINE NEGATIVE (NEGATIVE); BARBITURATE SCREEN, URINE NEGATIVE (NEGATIVE); CANNABINOID SCREEN,URINE NEGATIVE (NEGATIVE); COCAINE SCREEN,URINE NEGATIVE (NEGATIVE); METHADONE SCREEN, URINE NEGATIVE (NEGATIVE)
[2024-10-31 17:21] VITALS: BP 116/65; PULSE 64; RESP 18; O2SAT 98
[2024-10-31 17:26] LABS: SQUAMOUS EPITHELIAL CELL,UR Rare /LPF (None Seen)
== END 2024-10-31 18:56 | disposition home or self-care (01) ==
LOC: EMS 14:16
DX: G40.909 Epilepsy, unspecified, not intractable, without status epilepticus (principal); F20.9 Schizophrenia, unspecified; I10 Essential (primary) hypertension; F41.9 Anxiety disorder, unspecified; R06.02 Shortness of breath; F17.210 Nicotine dependence, cigarettes, uncomplicated; Z79.899 Other long term (current) drug therapy
CPT/HCPCS: 71045; 80048; 80307; 81001; 83880; 84484; 85025; 99284; 36415-L1; 36415-TC

== ENCOUNTER 2024-11-15 18:00 | Emergency (ER) | payer MEDICARE, MEDICAID ==
[~2024-11-15] VITALS: Ht 175.3 cm; Wt 75.0 kg
[2024-11-15 18:40] LABS: PLATELET COUNT (AUTO) 233 K/uL (150-450); RED BLOOD CELL COUNT(AUTO) 4.19 MIL/uL (4.50-5.90); RED CELL DISTRIBUTION WIDTH 13.2 % (11.5-14.5); WHITE BLOOD COUNT (AUTO) 7.8 K/uL (4.5-11.0)
[2024-11-15 18:45] LABS: CALCIUM, TOTAL 8.4 mg/dL (8.8-10.5); CREATININE 0.79 mg/dL (0.60-1.30); GLOMERULAR FILTR. RATE CALC > 60 mL/min (>60); GLUCOSE,RANDOM 113 mg/dL (70-110); SODIUM SERUM 141 mmol/L (136-145); UREA NITROGEN, BLOOD 16 mg/dL (7-18)
[2024-11-15 18:50] LABS: CREATINE KINASE, TOTAL ONLY 80 U/L (39-308)
[2024-11-15 18:55] LABS: TROPONIN I-HIGH SENSITIVITY 6 ng/L (<76)
[2024-11-15 19:59] LABS: APPEARANCE,URINE CLEAR (CLEAR); GLUCOSE, URINE (UA) NEGATIVE (NEGATIVE); LEUKOCYTE ESTERASE ,URINE NEGATIVE (NEGATIVE); NITRATE,URINE NEGATIVE (NEGATIVE); OCCULT BLOOD,URINE SMALL (NEGATIVE); SPECIFIC GRAVITIY, URINE 1.030 (1.003-1.030)
[2024-11-15 20:18] LABS: SQUAMOUS EPITHELIAL CELL,UR Rare /LPF (None Seen)
[2024-11-15 21:24] VITALS: BP 124/65; PULSE 68; RESP 16; TEMP 97.3; O2SAT 98
== END 2024-11-15 22:39 | disposition home or self-care (01) ==
LOC: EMS 18:00
DX: F41.9 Anxiety disorder, unspecified (principal); R07.2 Precordial pain; F32.A Depression, unspecified; I10 Essential (primary) hypertension; F20.9 Schizophrenia, unspecified; F17.210 Nicotine dependence, cigarettes, uncomplicated; Z86.73 Personal history of transient ischemic attack (TIA), and cerebral infarction without residual deficits; Z79.899 Other long term (current) drug therapy; Z98.890 Other specified postprocedural states
CPT/HCPCS: 71045; 80048; 81001; 82550; 83880; 84484; 85025; 93005; 99285; 36415-L1; 36415-TC

== ENCOUNTER 2024-12-04 17:03 | Emergency (ER) | payer MEDICARE, MEDICAID ==
[~2024-12-04] VITALS: Ht 172.7 cm; Wt 76.4 kg
[~2024-12-04 17:03] MED LIST changes: +DULO20CA23 PO; -DULO20CA57 PO
[2024-12-04 17:35] LABS: PLATELET COUNT (AUTO) 250 K/uL (150-450); RED BLOOD CELL COUNT(AUTO) 4.09 MIL/uL (4.50-5.90); RED CELL DISTRIBUTION WIDTH 13.3 % (11.5-14.5); WHITE BLOOD COUNT (AUTO) 9.2 K/uL (4.5-11.0)
[2024-12-04 17:47] LABS: CALCIUM, TOTAL 8.7 mg/dL (8.8-10.5); CREATININE 0.92 mg/dL (0.60-1.30); GLOMERULAR FILTR. RATE CALC > 60 mL/min (>60); GLUCOSE,RANDOM 129 mg/dL (70-110); SODIUM SERUM 143 mmol/L (136-145); UREA NITROGEN, BLOOD 15 mg/dL (7-18)
[2024-12-04 17:52] LABS: ASPARTATE AMINOTRANSFERASE 14 U/L (15-37); CREATINE KINASE, TOTAL ONLY 75 U/L (39-308); TOTAL PROTEIN, SERUM 6.6 g/dL (6.4-8.2)
[2024-12-04 17:54] LABS: TROPONIN I-HIGH SENSITIVITY 5 ng/L (<76)
[2024-12-04 17:56] LABS: VALPROIC ACID < 3 mcg/mL (50-100)
[2024-12-04] MEDS: SODIUM CHLORIDE 0.9% 1,000 ML IV ONE (18:26)
[2024-12-04] MEDS: POTASSIUM CHLORIDE 20 MEQ ER TABLET PO ONE (18:26)
[2024-12-04 18:35] VITALS: BP 90/57; PULSE 71; RESP 12; TEMP 97.8; O2SAT 97
[2024-12-04 18:39] LABS: LACTIC ACID 1.3 mmol/L (0.4-2.0)
== END 2024-12-04 19:36 | disposition left against medical advice (07) ==
LOC: EMS 17:03
DX: F41.9 Anxiety disorder, unspecified (principal); R07.89 Other chest pain; F20.9 Schizophrenia, unspecified; F32.A Depression, unspecified; G40.909 Epilepsy, unspecified, not intractable, without status epilepticus; F17.210 Nicotine dependence, cigarettes, uncomplicated; I10 Essential (primary) hypertension; Z86.73 Personal history of transient ischemic attack (TIA), and cerebral infarction without residual deficits; Z98.890 Other specified postprocedural states; Z79.899 Other long term (current) drug therapy
CPT/HCPCS: 71045; 80048; 80076; 80164; 80185; 82550; 83605; 83880; 84484; 85025; 85610; 85730; 93005; 99285; 36415-L1; 36415-TC

== ENCOUNTER 2024-12-11 17:37 | Emergency (ER) | payer MEDICARE, MEDICAID ==
[~2024-12-11] VITALS: Ht 180.3 cm; Wt 79.0 kg
[2024-12-11 17:52] VITALS: TEMP 97.3
[2024-12-11 18:00] VITALS: BP 104/63; PULSE 61; RESP 18; O2SAT 98
[2024-12-11 18:31] LABS: CALCIUM, TOTAL 8.4 mg/dL (8.8-10.5); CREATININE 1.04 mg/dL (0.60-1.30); GLOMERULAR FILTR. RATE CALC > 60 mL/min (>60); GLUCOSE,RANDOM 135 mg/dL (70-110); SODIUM SERUM 138 mmol/L (136-145); UREA NITROGEN, BLOOD 14 mg/dL (7-18)
[2024-12-11 18:32] LABS: PLATELET COUNT (AUTO) 233 K/uL (150-450); RED BLOOD CELL COUNT(AUTO) 3.99 MIL/uL (4.50-5.90); RED CELL DISTRIBUTION WIDTH 13.3 % (11.5-14.5); WHITE BLOOD COUNT (AUTO) 7.7 K/uL (4.5-11.0)
[2024-12-11 18:35] LABS: TROPONIN I-HIGH SENSITIVITY 4 ng/L (<76)
[2024-12-11] MEDS: LORazepam 2 MG/ML VIAL IM ONE (18:35)
== END 2024-12-11 21:56 | disposition home or self-care (01) ==
LOC: EMS 17:39
DX: F41.0 Panic disorder [episodic paroxysmal anxiety] (principal); I10 Essential (primary) hypertension; E87.6 Hypokalemia; F20.9 Schizophrenia, unspecified; F32.A Depression, unspecified; F17.210 Nicotine dependence, cigarettes, uncomplicated; Z79.899 Other long term (current) drug therapy
CPT/HCPCS: 99284; 80048; 84484; 85025; 36415; 93005; 96372; J2060

== ENCOUNTER 2025-03-22 21:49 | Emergency (ER) | payer MEDICARE, MEDICAID ==
[~2025-03-22] VITALS: Ht 172.7 cm; Wt 74.5 kg
[~2025-03-22 21:49] MED LIST changes: +ACET-2247 PO; +ASPI-1444 PO; +ASPI81TA87 PO; +ATOR20TA65 PO; -BUSP10TA23 PO; -DIVA-153 PO; -DULO20CA23 PO; +FAMO20 PO; +HEPA50009 SQ; -IBUP-1493 PO; +LACO100T14 PO; -LOSA-381 PO; +MAGN-169 PO; -MECL-244 PO; -MELA1TAB28 PO; +MULT-412 PO; -OLAN5TAB52 PO; -PHEN100C74 PO; +SERT-158 PO; +TRAZ-252 PO; -TRAZ150T80 PO
[2025-03-22 22:41] LABS: PLATELET COUNT (AUTO) 219 K/uL (150-450); RED BLOOD CELL COUNT(AUTO) 4.47 MIL/uL (4.50-5.90); RED CELL DISTRIBUTION WIDTH 13.4 % (11.5-14.5); WHITE BLOOD COUNT (AUTO) 8.5 K/uL (4.5-11.0)
[2025-03-22 22:47] LABS: CALCIUM, TOTAL 8.5 mg/dL (8.8-10.5); CREATININE 0.85 mg/dL (0.60-1.30); GLOMERULAR FILTR. RATE CALC > 60 mL/min (>60); GLUCOSE,RANDOM 122 mg/dL (70-110); SODIUM SERUM 141 mmol/L (136-145); UREA NITROGEN, BLOOD 15 mg/dL (7-18)
[2025-03-22 22:57] LABS: TROPONIN I-HIGH SENSITIVITY 4 ng/L (<76)
[2025-03-22 23:40] VITALS: TEMP 98.205296
[2025-03-22] MEDS: POTASSIUM CHLORIDE 20 MEQ ER TABLET PO ONE (23:41)
[2025-03-23 02:05] VITALS: BP 124/85; PULSE 69; RESP 16; O2SAT 97
== END 2025-03-23 02:00 | disposition home or self-care (01) ==
LOC: EMS 22:22
DX: R07.89 Other chest pain (principal); E87.6 Hypokalemia; F41.9 Anxiety disorder, unspecified; F20.9 Schizophrenia, unspecified; F32.A Depression, unspecified; I10 Essential (primary) hypertension; F17.210 Nicotine dependence, cigarettes, uncomplicated; Z98.890 Other specified postprocedural states; Z79.82 Long term (current) use of aspirin; Z79.899 Other long term (current) drug therapy; Z86.73 Personal history of transient ischemic attack (TIA), and cerebral infarction without residual deficits
CPT/HCPCS: 71045; 80048; 84484; 85025; 93005; 99285; 36415-L1; 36415-TC

== ENCOUNTER 2025-04-09 14:41 | Emergency (ER) | payer MEDICARE, MEDICAID ==
[~2025-04-09] VITALS: Ht 170.2 cm; Wt 75.0 kg
[2025-04-09 14:42] VITALS: TEMP 98.2
[2025-04-09 18:47] LABS: PLATELET COUNT (AUTO) 255 K/uL (150-450); RED BLOOD CELL COUNT(AUTO) 4.75 MIL/uL (4.50-5.90); RED CELL DISTRIBUTION WIDTH 13.4 % (11.5-14.5); WHITE BLOOD COUNT (AUTO) 9.1 K/uL (4.5-11.0)
[2025-04-09 18:48] LABS: APPEARANCE,URINE CLEAR (CLEAR); GLUCOSE, URINE (UA) NEGATIVE (NEGATIVE); LEUKOCYTE ESTERASE ,URINE NEGATIVE (NEGATIVE); NITRATE,URINE NEGATIVE (NEGATIVE); OCCULT BLOOD,URINE NEGATIVE (NEGATIVE); SPECIFIC GRAVITIY, URINE 1.009 (1.003-1.030)
[2025-04-09 18:54] LABS: CALCIUM, TOTAL 9.1 mg/dL (8.8-10.5); CREATININE 0.83 mg/dL (0.60-1.30); GLOMERULAR FILTR. RATE CALC > 60 mL/min (>60); GLUCOSE,RANDOM 90 mg/dL (70-110); SODIUM SERUM 138 mmol/L (136-145); UREA NITROGEN, BLOOD 9 mg/dL (7-18)
[2025-04-09 19:05] LABS: TROPONIN I-HIGH SENSITIVITY 6 ng/L (<76)
[2025-04-09 20:26] VITALS: BP 101/56; PULSE 51; RESP 18; O2SAT 98
[2025-04-09] MEDS ORDERED: TRAZ-252 PO (20:37)
== END 2025-04-09 20:58 | disposition home or self-care (01) ==
LOC: EMS 14:41
DX: R07.89 Other chest pain (principal); F20.9 Schizophrenia, unspecified; I11.0 Hypertensive heart disease with heart failure; F32.A Depression, unspecified; F17.210 Nicotine dependence, cigarettes, uncomplicated; Z98.890 Other specified postprocedural states; Z79.82 Long term (current) use of aspirin; Z79.899 Other long term (current) drug therapy; Z86.73 Personal history of transient ischemic attack (TIA), and cerebral infarction without residual deficits
CPT/HCPCS: 71045; 80048; 81003; 83880; 84484; 85025; 93005; 99285; 36415-L1; 36415-TC